=== PATIENT | male | born 1955 ===

== ENCOUNTER 2022-05-10 08:54 | Emergency (ER) | payer BC, MEDICARE ==
[2022-05-10] MEDS ORDERED: Amiodarone 150 MG/3 ML SDV IVPUSH ONE (08:59)
[2022-05-10 09:12] VITALS: BP 171/103; PULSE 163
== END 2022-05-10 09:54 ==
LOC: DL.ED 08:54
DX: I47.2 Ventricular tachycardia (principal); I25.10 Atherosclerotic heart disease of native coronary artery without angina pectoris; I50.9 Heart failure, unspecified; Z79.899 Other long term (current) drug therapy; Z79.82 Long term (current) use of aspirin
CPT/HCPCS: 93010; 96365; 96376; 99285; J0282